=== PATIENT | female | born 1985 | race Asian ===

== ENCOUNTER 2018-02-25 15:55 | Emergency (ER) | payer MEDICAID ==
[~2018-02-25] VITALS: Ht 175.3 cm; Wt 65.8 kg
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
[2018-02-25] MEDS ORDERED: Norco 5mg/325mg tab ORAL ONE (17:15)
[2018-02-25] MEDS ORDERED: Ketorolac 30mg Inj IM ONE (17:15)
[2018-02-25] MEDS ORDERED: Methocarbamol 500mg tab ORAL ONE (17:15)
[2018-02-25] MEDS ORDERED: ROBAXIN500 MG PO (17:42)
[2018-02-25] MEDS ORDERED: TYLENOL EXTRA500 MG ORAL (17:42)
[2018-02-25 17:54] VITALS: BP 111/67
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
== END 2018-02-25 17:58 | disposition home or self-care (01) ==
LOC: EDBD 15:55 → EMR 16:26
DX: M54.2 Cervicalgia (principal); R51 Headache; E04.9 Nontoxic goiter, unspecified; V43.52XA Car driver injured in collision with other type car in traffic accident, initial encounter; Y92.410 Unspecified street and highway as the place of occurrence of the external cause
CPT/HCPCS: 70450; 72125; 96372; 99284; J1885